=== PATIENT | male | born 1990 | race Two or more races ===

== ENCOUNTER 2016-07-24 14:26 | Emergency (ER) | payer MEDICAID, OTHER ==
[~2016-07-24] VITALS: Ht 177.8 cm; Wt 63.5 kg
[2016-07-24 15:05] VITALS: BP 107/62
== END 2016-07-24 15:46 | disposition home or self-care (01) ==
LOC: ER 14:32
DX: S62.656A Nondisplaced fracture of middle phalanx of right little finger, initial encounter for closed fracture (principal); W20.8XXA Other cause of strike by thrown, projected or falling object, initial encounter; Y93.89 Activity, other specified; Y99.8 Other external cause status; Y92.89 Other specified places as the place of occurrence of the external cause
CPT/HCPCS: 29130; 73140